=== PATIENT | male | born 1940 | race Caucasian/White ===

== ENCOUNTER 2016-12-26 20:31 | Emergency (ER) | payer OTHER ==
--- NOTE | 2016-12-26 22:54 | DIAGNOSTIC IMAGING REPORT ---
PROCEDURE: CT ABD/PELVIS WITH CONTRAST INDICATION: Epigastric pain. Nausea and vomiting. Elevated white blood count (19,300) and liver function tests TECHNIQUE: 125 ml of Isovue 300 were injected intravenously and axial images were obtained of the entire abdomen and pelvis with sagittal and coronal reformations. COMPARISON: None. FINDINGS: ABDOMEN: There are multiple noncalcified gallstones (largest 2.3 cm). Findings suggest a 8-10 mm distal common duct stone with moderate distention of the common duct (12 mm) and mild intrahepatic ductal dilation. Liver and pancreas appear normal. Spleen and kidneys are normal. Moderate diverticulosis of the descending colon. Bowel pattern is otherwise normal, including appendix. Moderate to marked calcified atheromatous changes of the abdominal aorta with mild aneurysmal line dilation of the lower abdominal aorta (3.2 cm). There is a 20% old compression fracture of the T12 vertebral body. 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 Marked sigmoid diverticulosis, but no evidence of diverticulitis. Marked enlargement prostate (5.5 cm). The rest of pelvic structures are normal. IMPRESSION: 1. Cholelithiasis with multiple noncalcified gallstones (largest 2.3 cm). 2. Findings suggest 10 mm distal common duct stone with moderate dilation of the common bile duct (12 mm), and mild intrahepatic ductal dilation. 3. 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 4. 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 5. Moderate diverticulosis of the descending colon with marked diverticulosis of the sigmoid colon. No evidence of diverticulitis. 6. Marked enlargement prostate (5.5 cm). 7. Findings discussed with Dr. Carson Douglass. All CT scans at this facility use dose modulation, iterative reconstruction, and/or weight-based dosing when appropriate to reduce radiation dose to as low as reasonably achievable.
--- NOTE | 2016-12-26 23:16 | ED NURSING NOTES ---
Clinical Report - Nurses [facility] [address] [place] [address] 12/26/2016 20:32 Patient: DIMITRY KING TRIAGE Triage time 20:33 Dec 26 2016. Acuity: LEVEL 3. Chief Complaint: ABDOMINAL PAIN. 20:38 12/26/16. SEPSIS SCREEN: Sepsis Screen: negative. Negative (no infection suspected/documented). --20:38 Cristal eYh R.N. 20:33 12/26/16. BP: 166/81. HR: 79. RR: 18. O2 saturation: 97%. Temp: 97.7 F. Pain level now: 08/09. --20:38 Cristal Yeh R.N. Weight: 77.1 kg. Height/Length: 69 inches. BMI: 25.1. --20:32 Cristal Yeh R.N. Medications Blood Pressure Pill. --20:34 Cristal Yeh R.N. PILL FOR ANXIETY. --20:34 Cristal Yeh R.N. PriLOSEC Oral. --20:36 Cristal Yeh R.N. Flomax Oral. --20:39 Cristal Yeh R.N. OxyCODONE HCl Oral. --22:10 Cristal Yeh R.N. Medication/allergy information source: the patient. --20:38 Cristal Yeh R.N. Allergies Penicillins. --20:33 Cristal Yeh R.N. History Arrived by private vehicle. Historian: patient. Accompanied by family. Onset. (3 PM). ( STARTED AT 3 PM TODAY, HAS HAD THIS PAIN BEFORE, MD FEELS HE HAS ULCER, STARTED ON PRILOSEC. STATES THIS PAIN IS SIMILAR TO THAT HE HAS HAD IN THE PAST AND IT USUALLY LASTS ABOUT 3 HOURS AND GOES AWAY ON ITS OWN. TODAY IT DIDNT). The patient has had nausea, vomiting and abdominal pain. No diarrhea or constipation. 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 SOCIAL HX: Never smoker. No alcohol use or drug use. No recent travel. No known contact with a sick individual. ABUSE ASSESSMENT: No report of abuse. SELF HARM ASSESSMENT: A self harm assessment was performed. The patient answered "no" to the question "Have you recently felt down, depressed, or hopeless?", "Have you noticed less interest or pleasure in doing things?", "Do you have thoughts of harming or killing yourself?", "Are you here because you tried to hurt yourself?", "Have you ever tried to hurt yourself before today?", "Have you recently had thoughts about harming or killing others?" and "Do you have any dangerous items in your possession?". FALL RISK ASSESSMENT: Fall risk assessment completed. No fall risk identified. NUTRITIONAL RISK ASSESSMENT: The nutritional risk assessment revealed no deficiencies. FUNCTIONAL ASSESSMENT: Functional assessment: no impairments noted. LEARNING NEEDS ASSESSMENT: The learning needs assessment revealed no barriers. SKIN INTEGRITY ASSESSMENT: Skin integrity risk assessment completed. No skin integrity risk identified. --20:38 Cristal Yeh R.N. PROBLEMS: Anxiety Reaction. Hypertension. --20:34 Cristal Yeh R.N. Benign Prostatic Hypertrophy. --20:39 Cristal Yeh R.N. ADDITIONAL SURGERIES: Hernia Repair. --20:35 Cristal Yeh R.N. Interventions ID band on patient. --20:38 Cristal Yeh R.N. PHYSICAL ASSESSMENT 20:39 12/26/16. Ambulatory to room. GENERAL / NEURO / PSYCH: Alert. Oriented X 4. HEENT: Mucous membranes are pink. RESPIRATORY: Breath sounds within normal limits. CVS: Normal sinus rhythm noted. Capillary refill less than 2 seconds. GI / : Abdomen soft. SKIN: Skin is warm and dry. --20:39 Cristal Yeh R.N. 22:11 12/26/16. ( PATIENTS REPORTING THAT HE HAS HAD STOOL THAT IS ALMOST WHITE IN COLOR.). --22:11 Cristal Yeh R.N. NURSING PROGRESS NOTES 20:38 12/26/16. The initial plan of care for this patient includes an assessment with efforts to address the presence of pain; impairment of the gastrointestinal system. This plan of care was discussed with the patient. traffic monitor specialist, pulse oximeter and NIBP monitor placed on patient. Patient gowned. Reassurance given. Patient identifiers checked. Call light placed in reach. Side rails up x 1. Bed placed in lowest position. Brakes of bed on. Patient ready for evaluation. --20:38 Cristal Yeh R.N. 20:49 12/26/2016 Site #1 started via IV in the right forearm with an 20g angiocath, with aseptic technique and good blood return; one attempt. Blood drawn: rainbow set. Labeled in the presence of the patient and sent to the lab. Saline lock flushed with 10 mL saline. --20:49 Cristal Yeh R.N. 20:49 12/26/16. Cardiac rhythm: normal sinus rhythm. --20:49 Cristal Yeh R.N. 20:57. EKG was performed by a nicholas and shown to the ED physician. --21:04 Rina Silvestre ER Tech1 21:57 12/26/2016 Zofran (Ondansetron HCl) IVP 8 mg given over 1 minute(s) via site #1. Allergies verified and confirmed 5 rights. IV patency established. IV site checked: no pain, redness, or swelling. IV flushed thoroughly pre- and post-medication administration. IVP given by RN. --22:00 Cristal Yeh R.N. 21:59 12/26/2016 Dilaudid (HYDROmorphone HCl PF) IVP 0.5 mg given over 1 minute(s) via site #1. Allergies verified, confirmed 5 rights and sedative warning given to the patient and patient's family. IV patency established. IV site checked: no pain, redness, or swelling. IV flushed thoroughly pre- and post-medication administration. IVP given by RN. --22:00 Cristal Yeh R.N. The patient has had no adverse reaction. Overall patient status is improved- he states feels better. GI / : The patient reports abdominal pain is still present but improving and currently moderate in severity. Patient transported to [place] by stretcher. --22:08 Cristal Yeh R.N. 22:07 12/26/16. BP: 180/86. HR: 84. RR: 16. O2 saturation: 95%. Pain level now 6/10. --22:08 Cristal Yeh R.N. 22:35 12/26/2016 GI COCKTAIL WHITE (Simethicone) PO Oral Suspension 30 mL given. Allergies verified and confirmed 5 rights. --22:38 Cristal Yeh R.N. 22:50 12/26/16. BP: 171/83. HR: 81. RR: 16. O2 saturation: 99%. Pain level now 3/10. --22:50 Cristal Yeh R.N. 22:50 12/26/16. The patient is calm and resting quietly. Overall patient status is improved- he states feels better. --22:50 Cristal Yeh R.N. 00:00 12/27/2016 Started 1 gm of Cefotan IVPB in bag #1 50 mL; at 400 mL/hr over 30 minute(s) via site #1 --00:00 Cristal Yeh R.N. DISPOSITION / DISCHARGE 00:12 12/27/16. Report was given to a nurse via a phone call. Report included patient's care, treatment, medications, reviewed medication reconcilliation, and condition (including any recent changes or anticipated changes). All questions were answered. (to Tess on [address] [facility] in [place]). --00:12 Cristal Yeh R.N. 00:28 12/27/2016 Site #[address] upon transfer; patent. Poor blood return present. Flushed with 10 mL saline. --00:28 Cristal Yeh R.N. 00:28 12/27/16. Condition at departure: improved and stable. The goals identified in the patient's plan of care were met. Transferred to [facility] (Room 1055-2). ( Patient refused ambulance transport. Pt will be going by POV. instructed to go directly to [facility]. No stops. Pt to remain NPO. Aware that tests may be done on arrival and verbalized understanding.). FALL RISK ASSESSMENT: Fall risk assessment completed. No fall risk identified. --00:29 Cristal Yeh R.N. 00:28 12/27/16. BP: 152/77. HR: 81. RR: 16. O2 saturation: 99%. Temp: 98.0 F. Pain level now 5/10. --00:29 Cristal Yeh R.N. Locked/Released at 12/27/2016 1:29 by Cristal Yeh R.N.
--- NOTE | 2016-12-26 23:16 | ED ORDER SUMMARY ---
..... Patient: DIMITRY KING OrderSheet [facility] VisitID: [id number] [place] [address] 76y, M Registration Date/Time: 12/26/2016 ORDER SHEET Weight: 77.1 kg Allergies: Penicillins GENERAL ORDERS: CBC w Diff Urgent (20:52 12/26/2016 EInderbitzen R.N. verbal order read back to Guzman TURK) (Ack 20:55 LTapper) (21:03 AMcQuoid ER Tech1) CMP Urgent (20:52 12/26/2016 EInderbitzen R.N. verbal order read back to Guzman TURK) (Ack 20:55 LTapper) (21:03 AMcQuoid ER Tech1) Cardiac Panel Stat (20:52 12/26/2016 EInderbitzen R.N. verbal order read back to Guzman TURK) (Ack 20:55 LTapper) (21:03 AMcQuoid ER Tech1) Amylase Urgent (20:52 12/26/2016 EInderbitzen R.N. verbal order read back to Guzman TURK) (Ack 20:55 LTapper) (21:03 AMcQuoid ER Tech1) Lipase Urgent (20:52 12/26/2016 EInderbitzen R.N. verbal order read back to Guzman TURK) (Ack 20:55 LTapper) (21:03 AMcQuoid ER Tech1) EKG - ER Stat (20:52 12/26/2016 EInderbitzen R.N. verbal order read back to Guzman TURK) (Ack 20:55 LTapper) (21:03 AMcQuoid ER Tech1) CT Abd/Pel w Cont (No) (pending) Urgent (21:50 12/26/2016 Guzman TURK) (Ack 21:59 LTapper) (22:48 MCampbell) UA-Culture if indicated Urgent (22:33 12/26/2016 EInderbitzen R.N. verbal order read back to Guzman TURK) (Ack 22:35 AMcQuoid ER Tech1) (22:50 EInderbitzen R.N.) MEDICATION ORDERS: GI Cocktail WHITE PO 50 mL (after zofran kicks in) (21:49 12/26/2016 Guzman TURK) (22:38 EInderbitzen R.N.) IV FLUIDS: IV Saline Lock (20:52 12/26/2016 EInicoleerdevante R.N. verbal order read back to Guzman TURK) (20:56 EInderbitzen R.N.) Zofran IV 8 mg (NOW) (21:49 12/26/2016 Guzman TURK) (22:00 EInderbitasia R.N.) Dilaudid IV 0.5 mg (NOW) (21:49 12/26/2016 Guzman TURK) (22:00 EInderbitzen R.N.) Zosyn IV 3.375 gm/50mL (NOW) (23:25 12/26/2016 Guzman TURK) (Cancelled: Other23:31 Guzman TURK) Cefotan IV 1 gm (NOW) (23:31 12/26/2016 Guzman TURK) (0:00 EInderbitzen R.N.) ORDER SHEET NOTES: [Electronically signed by Cristal Yeh R.N. (01:12/27/2016)] [Electronically signed by Carson Douglass MD (10:26 12/29/2016)] [Electronically locked/signed by Cristal Yeh R.N. (:12/27/2016)]
--- NOTE | 2016-12-26 23:16 | ED NURSING NOTES ---
Clinical Report - Nurses [facility] [address] [place] [address] 12/26/2016 20:32 Patient: DIMITRY KING TRIAGE Triage time 20:33 Dec 26 2016. Acuity: LEVEL 3. Chief Complaint: ABDOMINAL PAIN. 20:38 12/26/16. SEPSIS SCREEN: Sepsis Screen: negative. Negative (no infection suspected/documented). --20:38 Cristal Yeh R.N. 20:33 12/26/16. BP: 166/81. HR: 79. RR: 18. O2 saturation: 97%. Temp: 97.7 F. Pain level now: 08/09. --20:38 Cristal Yeh R.N. Weight: 77.1 kg. Height/Length: 69 inches. BMI: 25.1. --20:32 Cristal Yeh R.N. Medications Blood Pressure Pill. --20:34 Cristal Yeh R.N. PILL FOR ANXIETY. --20:34 Cristal Yeh R.N. PriLOSEC Oral. --20:36 Cristal Yeh R.N. Flomax Oral. --20:39 Cristal Yeh R.N. OxyCODONE HCl Oral. --22:10 Cristal Yeh R.N. Medication/allergy information source: the patient. --20:38 Cristal Yeh R.N. Allergies Penicillins. --20:33 Cristal Yeh R.N. History Arrived by private vehicle. Historian: patient. Accompanied by family. Onset. (3 PM). ( STARTED AT 3 PM TODAY, HAS HAD THIS PAIN BEFORE, MD FEELS HE HAS ULCER, STARTED ON PRILOSEC. STATES THIS PAIN IS SIMILAR TO THAT HE HAS HAD IN THE PAST AND IT USUALLY LASTS ABOUT 3 HOURS AND GOES AWAY ON ITS OWN. TODAY IT DIDNT). The patient has had nausea, vomiting and abdominal pain. No diarrhea or constipation. 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 SOCIAL HX: Never smoker. No alcohol use or drug use. No recent travel. No known contact with a sick individual. ABUSE ASSESSMENT: No report of abuse. SELF HARM ASSESSMENT: A self harm assessment was performed. The patient answered "no" to the question "Have you recently felt down, depressed, or hopeless?", "Have you noticed less interest or pleasure in doing things?", "Do you have thoughts of harming or killing yourself?", "Are you here because you tried to hurt yourself?", "Have you ever tried to hurt yourself before today?", "Have you recently had thoughts about harming or killing others?" and "Do you have any dangerous items in your possession?". FALL RISK ASSESSMENT: Fall risk assessment completed. No fall risk identified. NUTRITIONAL RISK ASSESSMENT: The nutritional risk assessment revealed no deficiencies. FUNCTIONAL ASSESSMENT: Functional assessment: no impairments noted. LEARNING NEEDS ASSESSMENT: The learning needs assessment revealed no barriers. SKIN INTEGRITY ASSESSMENT: Skin integrity risk assessment completed. No skin integrity risk identified. --20:38 Cristal Yeh R.N. PROBLEMS: Anxiety Reaction. Hypertension. --20:34 Cristal Yeh R.N. Benign Prostatic Hypertrophy. --20:39 Cristal Yeh R.N. ADDITIONAL SURGERIES: Hernia Repair. --20:35 Cristal Yeh R.N. Interventions ID band on patient. --20:38 Cristal Yeh R.N. PHYSICAL ASSESSMENT 20:39 12/26/16. Ambulatory to room. GENERAL / NEURO / PSYCH: Alert. Oriented X 4. HEENT: Mucous membranes are pink. RESPIRATORY: Breath sounds within normal limits. CVS: Normal sinus rhythm noted. Capillary refill less than 2 seconds. GI / : Abdomen soft. SKIN: Skin is warm and dry. --20:39 Cristal Yeh R.N. 22:11 12/26/16. ( PATIENTS REPORTING THAT HE HAS HAD STOOL THAT IS ALMOST WHITE IN COLOR.). --22:11 Cristal Yeh R.N. NURSING PROGRESS NOTES 20:38 12/26/16. The initial plan of care for this patient includes an assessment with efforts to address the presence of pain; impairment of the gastrointestinal system. This plan of care was discussed with the patient. machine sign writer, pulse oximeter and NIBP monitor placed on patient. Patient gowned. Reassurance given. Patient identifiers checked. Call light placed in reach. Side rails up x 1. Bed placed in lowest position. Brakes of bed on. Patient ready for evaluation. --20:38 Cristal Yeh R.N. 20:49 12/26/2016 Site #1 started via IV in the right forearm with an 20g angiocath, with aseptic technique and good blood return; one attempt. Blood drawn: rainbow set. Labeled in the presence of the patient and sent to the lab. Saline lock flushed with 10 mL saline. --20:49 Cristal Yeh R.N. 20:49 12/26/16. Cardiac rhythm: normal sinus rhythm. --20:49 Cristal Yeh R.N. 20:57. EKG was performed by a nicholas and shown to the ED physician. --21:04 Rina Silvestre ER Tech1 21:57 12/26/2016 Zofran (Ondansetron HCl) IVP 8 mg given over 1 minute(s) via site #1. Allergies verified and confirmed 5 rights. IV patency established. IV site checked: no pain, redness, or swelling. IV flushed thoroughly pre- and post-medication administration. IVP given by RN. --22:00 Cristal Yeh R.N. 21:59 12/26/2016 Dilaudid (HYDROmorphone HCl PF) IVP 0.5 mg given over 1 minute(s) via site #1. Allergies verified, confirmed 5 rights and sedative warning given to the patient and patient's family. IV patency established. IV site checked: no pain, redness, or swelling. IV flushed thoroughly pre- and post-medication administration. IVP given by RN. --22:00 Cristal Yeh R.N. The patient has had no adverse reaction. Overall patient status is improved- he states feels better. GI / : The patient reports abdominal pain is still present but improving and currently moderate in severity. Patient transported to [place] by stretcher. --22:08 Cristal Yeh R.N. 22:07 12/26/16. BP: 180/86. HR: 84. RR: 16. O2 saturation: 95%. Pain level now 6/10. --22:08 Cristal Yeh R.N. 22:35 12/26/2016 GI COCKTAIL WHITE (Simethicone) PO Oral Suspension 30 mL given. Allergies verified and confirmed 5 rights. --22:38 Cristal Yeh R.N. 22:50 12/26/16. BP: 171/83. HR: 81. RR: 16. O2 saturation: 99%. Pain level now 3/10. --22:50 Cristal Yeh R.N. 22:50 12/26/16. The patient is calm and resting quietly. Overall patient status is improved- he states feels better. --22:50 Cristal Yeh R.N. 00:00 12/27/2016 Started 1 gm of Cefotan IVPB in bag #1 50 mL; at 400 mL/hr over 30 minute(s) via site #1 --00:00 Cristal Yeh R.N. DISPOSITION / DISCHARGE 00:12 12/27/16. Report was given to a nurse via a phone call. Report included patient's care, treatment, medications, reviewed medication reconcilliation, and condition (including any recent changes or anticipated changes). All questions were answered. (to Tess on [address] at [facility] in [place]). --00:12 Cristal Yeh R.N. 00:28 12/27/2016 Site #[address] upon transfer; patent. Poor blood return present. Flushed with 10 mL saline. --00:28 Cristal Yeh R.N. 00:28 12/27/16. Condition at departure: improved and stable. The goals identified in the patient's plan of care were met. Transferred to [facility] (Room 1055-2). ( Patient refused ambulance transport. Pt will be going by POV. instructed to go directly to [facility]. No stops. Pt to remain NPO. Aware that tests may be done on arrival and verbalized understanding.). FALL RISK ASSESSMENT: Fall risk assessment completed. No fall risk identified. --00:29 Cristal Yeh R.N. 00:28 12/27/16. BP: 152/77. HR: 81. RR: 16. O2 saturation: 99%. Temp: 98.0 F. Pain level now 5/10. --00:29 Cristal Yeh R.N. Locked/Released at 12/27/2016 1:29 by Cristal Yeh R.N.
--- NOTE | 2016-12-26 23:16 | ED CLINICAL REPORT ---
Clinical Report - Physicians/Mid Levels [facility] [address] [place] [address] 12/26/2016 20:32 Patient: DIMITRY KING Time Seen: 21:02 Dec 26 2016. Arrived- By private vehicle. Historian- patient. HISTORY OF PRESENT ILLNESS Chief Complaint: ABDOMINAL PAIN. This started today STARTED AT 3 PM TODAY, HAS HAD THIS PAIN BEFORE, MD FEELS HE HAS ULCER, STARTED ON PRILOSEC. STATES THIS PAIN IS SIMILAR TO THAT HE HAS HAD IN THE PAST AND IT USUALLY LASTS ABOUT 3 HOURS AND GOES AWAY ON ITS OWN. TODAY IT DIDNT). and is still present. It is described as "pain" and it is described as located in the epigastric area. At its maximum, severity described as severe. When seen in the E.D., severity described as severe. Modifying factors. Not worsened by anything. Not relieved by anything. The patient has had nausea and vomiting. (has had 3 episodes in the month of November. Food does not seem to affect the pain either making it worse or better. Does not have a history of severe reflux or peptic ulcer disease in the past. Does not have any blood per rectum. He has had vomiting with these episodes.). No recent travel. Similar symptoms previously: Milder (9 times since July 2016.). Recent medical care: The patient was seen recently in the office (This month). Seen for similar symptoms. Diagnosis: ulcer. REVIEW OF SYSTEMS No constipation, black stools, hematemesis, difficulty with urination or pain with urination. No urinary frequency, fever, sore throat or throat or chest pain. No difficulty breathing, cough, joint pain, skin rash or chills. No back pain, easy bruising or symptoms of hypothyroidism. All systems otherwise negative, except as recorded above. PAST HISTORY Peptic ulcer. Anxiety Reaction. Hypertension. Benign Prostatic Hypertrophy. Hernia Repair. Back injury and chronic L foot pain. Medications: OxyCODONE HCl Oral. Flomax Oral. PriLOSEC Oral. PILL FOR ANXIETY. Blood Pressure Pill. Allergies: Penicillins. SOCIAL HISTORY Never smoker. No alcohol use or drug use. ADDITIONAL NOTES The nursing notes have been reviewed. PHYSICAL EXAM Vital Signs: 12/26/2016 20:33 BP: 166/81. HR: 79. RR: 18. O2 saturation: 97%. Temp: 97.7 F. Pain level now: 08/09. Appearance: Alert. Appears to be in pain. Patient in moderate distress. Eyes: Eyes normal inspection. ENT: Pharynx normal. Neck: Normal inspection. CVS: Normal heart rate and rhythm. Heart sounds normal. Pulses normal. Respiratory: No respiratory distress. Breath sounds normal. Chest nontender. Abdomen: Moderate tenderness in the epigastric area with guarding present. Abnormal bowel sounds: absent. Back: Normal inspection. Skin: Skin warm. Normal skin color. No rash. Extremities: Extremities exhibit normal ROM. Neuro: Oriented X 3. No motor deficit. No sensory deficit. LABS, X-RAYS, AND EKG EKG: No acute ischemia. Normal sinus rhythm. Occasional unifocal wide-complex ectopic beats. Premature ventricular contractions. Normal P waves. Normal QRS complex. Normal axis. No acute ST , T wave changes. There is isolated flattened T wave in lead V1. Prior EKG unavailable. The study has been interpreted contemporaneously. The study has been independently viewed by me. The EKG appears to be a good tracing. Abdominal CT: Muktiple gallstones 22with common duct stone 10 mm due to intrahepatic dilatation, ASVD aorta , iliac vesseles, marked diverticulosis,. Abdominal CT performed with IV contrast. The study was interpreted by the radiologist and discussed with the radiologist. Laboratory Tests: CBC w Diff: (TALITA: 12/26/2016 20:55) ( MsgRcvd 12/26/2016 21:05) Final results Test Result Flag Units (Reference) WHITE BLOOD COUNT 19.3 H K/uL (4.5-11.5) RED BLOOD COUNT 5.10 M/uL (4.50-5.90) HEMOGLOBIN 14.8 gm/dL (13.5-17.5) HEMATOCRIT 44.9 % (41.0-53.0) MEAN CELL VOLUME 88 fL (80-100) MEAN CORPUSCULAR HGB 29 pg (26-34) MEAN CORPUSCULAR HGB CONC 33 g/dL (31-37) RED CELL DISTRIBUTION WIDTH 13.1 % (11.6-14.8) PLATELET COUNT 237 K/uL (150-400) NEUTROPHIL % 89.0 H % (50-75) LYMPH % 5.6 L % (25-40) MONO % 5.3 % (3-14) EOSINOPHIL % 0.1 % (0-4) BASOPHIL % 0 % (0-2) Troponin-I: (TALITA: 12/26/2016 20:55) ( MsgRcvd 12/26/2016 21:20) Final results Test Result Flag Units (Reference) GLUCOSE 178 H mg/dL (70-110) BUN 23 H mg/dL (7-18) CREATININE 1.5 H mg/dL (0.6-1.3) Estimated GFR 48.36 mL/min Estimated GFR- 58.61 mL/min Note: Persistent reduction over 3 months in eGFR<60 mL/min/1.73 m2 defines CKD. Patients with eGFR values>=60 mL/min/1.73 m2 may also have CKD if evidence ofpersistent proteinuria. Additional information may be foundat www.kidney.org. SODIUM 142 mmol/L (136-145) POTASSIUM 3.9 mmol/L (3.5-5.1) CHLORIDE 104 mmol/L (98-107) CARBON DIOXIDE 27 mmol/L (21-32) CALCIUM 9.1 mg/dL (8.5-10.1) TOTAL PROTEIN 7.2 g/dL (6.4-8.2) ALBUMIN 3.6 g/dL (3.3-5.0) BILIRUBIN, TOTAL 4.6 H mg/dL (0.0-1.0) Icteric specimen ALKALINE PHOSPHATASE 586 H U/L (46-116) AST (SGOT) 107 H U/L (15-37) ALT (SGPT) 222 H U/L (12-78) CPK 30 U/L (24-260) MAGNESIUM 2.0 mg/dL (1.8-2.4) LIPASE 292 U/L (73-393) AMYLASE 52 U/L (25-115) TROPONIN I <0.05 L ng/mL (0.00-1.5) TROPONIN REFERENCE RANGE:<0.1 NEGATIVE0.1-1.5 INDETERMINANT>1.5 POSITIVE . PROGRESS AND PROCEDURES Course of Care: heplock Zofran 4 mg IV Dilaudid 1 mg IV Cefotan 1g IV Patient is stable. Symptoms better. Discussed with Surgeon an call [place]. He will admit and consult GI to remove stone by ERCP. Discussed with patient and he refuses transport in ambulance due to cost and will have drive him to [place]. Discussed potential risks but pt will go POV. Patient/family counseled. Disposition: Benefits, risks and alternatives to transfer explained to patient and family. Transferred to [facility]. Summary of care provided to transfer facility. CLINICAL IMPRESSION Acute epigastric abdominal pain. Acute 10mm common duct stone with obstruction. INSTRUCTIONS (Refusing ambulance: Go directly to [place] admitting: Erickson.). (Electronically signed by Carson Douglass MD 12/29/2016 10:26)
--- NOTE | 2016-12-26 23:16 | ED ORDER SUMMARY ---
..... Patient: DIMITRY KING OrderSheet [facility] VisitID: [id number] [place] [address] 76y, M Registration Date/Time: 12/26/2016 ORDER SHEET Weight: 77.1 kg Allergies: Penicillins GENERAL ORDERS: CBC w Diff Urgent (20:52 12/26/2016 EInderbitzen R.N. verbal order read back to Guzman TURK) (Ack 20:55 LTapper) (21:03 AMcQuoid ER Tech1) CMP Urgent (20:52 12/26/2016 EInderbitzen R.N. verbal order read back to Guzman TURK) (Ack 20:55 LTapper) (21:03 AMcQuoid ER Tech1) Cardiac Panel Stat (20:52 12/26/2016 EInderbitzen R.N. verbal order read back to Guzman TURK) (Ack 20:55 LTapper) (21:03 AMcQuoid ER Tech1) Amylase Urgent (20:52 12/26/2016 EInderbitzen R.N. verbal order read back to Guzman TURK) (Ack 20:55 LTapper) (21:03 AMcQuoid ER Tech1) Lipase Urgent (20:52 12/26/2016 EInderbitzen R.N. verbal order read back to Guzman TURK) (Ack 20:55 LTapper) (21:03 AMcQuoid ER Tech1) EKG - ER Stat (20:52 12/26/2016 EInderbitzen R.N. verbal order read back to Guzman TURK) (Ack 20:55 LTapper) (21:03 AMcQuoid ER Tech1) CT Abd/Pel w Cont (No) (pending) Urgent (21:50 12/26/2016 Guzman TURK) (Ack 21:59 LTapper) (22:48 MCampbell) UA-Culture if indicated Urgent (22:33 12/26/2016 EInderbitzen R.N. verbal order read back to Guzman TURK) (Ack 22:35 AMcQuoid ER Tech1) (22:50 EInderbitzen R.N.) MEDICATION ORDERS: GI Cocktail WHITE PO 50 mL (after zofran kicks in) (21:49 12/26/2016 Guzman TURK) (22:38 EInderbitzen R.N.) IV FLUIDS: IV Saline Lock (20:52 12/26/2016 EInicoleerdevante R.N. verbal order read back to Guzman TURK) (20:56 EInderbitzen R.N.) Zofran IV 8 mg (NOW) (21:49 12/26/2016 Guzman TURK) (22:00 EInderbitasia R.N.) Dilaudid IV 0.5 mg (NOW) (21:49 12/26/2016 Guzman TURK) (22:00 EInderbitzen R.N.) Zosyn IV 3.375 gm/50mL (NOW) (23:25 12/26/2016 Guzman TURK) (Cancelled: Other23:31 Guzman TURK) Cefotan IV 1 gm (NOW) (23:31 12/26/2016 Guzman TURK) (0:00 EInderbitzen R.N.) ORDER SHEET NOTES: [Electronically signed by Cristal Yeh R.N. (01:12/27/2016)] [Electronically signed by Carson Douglass MD (10:26 12/29/2016)] [Electronically locked/signed by Cristal Yeh R.N. (:12/27/2016)]
--- NOTE | 2016-12-29 10:26 | ED MAR SUMMARY ---
..... Medication Administration Record [facility] [address] [place] [place] [address] Patient: DIMITRY KING Visit ID: [id number] 76y, M Weight: 77.1 kg Height/Length: 69 in BMI: 25.1 ALLERGIES: Penicillins Given 21:57 12/26/2016 Cristal Yeh R.N. Medication Administered: ZOFRAN [IVP] (ONDANSETRON HCL), Dose: 8 mg IVP over 1 minute(s), Site: #1 right forearm. Medication Ordered: Zofran IV 8 mg (NOW). Given 21:59 12/26/2016 Cristal Yeh R.N. Medication Administered: DILAUDID [IVP] (HYDROMORPHONE HCL PF), Dose: 0.5 mg IVP over 1 minute(s), Site: #1 right forearm. Medication Ordered: Dilaudid IV 0.5 mg (NOW). Given 22:35 12/26/2016 Cristal Yeh R.N. Medication Administered: GI COCKTAIL WHITE [PO] (SIMETHICONE), Dose: 30 mL Oral Suspension PO. Medication Ordered: GI Cocktail WHITE PO 50 mL (after zofran kicks in). Start 00:00 12/27/2016 Cristal Yeh R.N. Medication Administered: CEFOTAN [IVPB], Dose: 1 gm IVPB over 30 minute(s), Rate: 400 mL/hr, Dispensed: 50 mL bag, Site: #1 right forearm. Medication Ordered: Cefotan IV 1 gm (NOW).
--- NOTE | 2016-12-29 10:26 | ED DISCHARGE INSTRUCTIONS ---
Patient: DIMITRY KING General Instructions [facility] VisitID: [id number] [address] [place] [address] 76y, M Registration Date/Time: 12/26/2016 Acute epigastric abdominal pain. Acute 10mm common duct stone with obstruction. INSTRUCTIONS (Refusing ambulance: Go directly to [place] admitting: [facility].). (Electronically signed by Carson Douglass MD 12/29/2016 10:26)
--- NOTE | 2016-12-29 10:26 | ED DISCHARGE INSTRUCTIONS ---
Patient: DIMITRY KING General Instructions [facility] VisitID: [id number] [address] [place] [address] 76y, M Registration Date/Time: 12/26/2016 Acute epigastric abdominal pain. Acute 10mm common duct stone with obstruction. INSTRUCTIONS (Refusing ambulance: Go directly to [place] admitting: [facility].). (Electronically signed by Carson Douglass MD 12/29/2016 10:26)
--- NOTE | 2016-12-29 10:26 | ED MAR SUMMARY ---
..... Medication Administration Record [facility] [address] [place] [address] Patient: DIMITRY KING Visit ID: [id number] 76y, M Weight: 77.1 kg Height/Length: 69 in BMI: 25.1 ALLERGIES: Penicillins Given 21:57 12/26/2016 Cristal Yeh R.N. Medication Administered: ZOFRAN [IVP] (ONDANSETRON HCL), Dose: 8 mg IVP over 1 minute(s), Site: #1 right forearm. Medication Ordered: Zofran IV 8 mg (NOW). Given 21:59 12/26/2016 Cristal Yeh R.N. Medication Administered: DILAUDID [IVP] (HYDROMORPHONE HCL PF), Dose: 0.5 mg IVP over 1 minute(s), Site: #1 right forearm. Medication Ordered: Dilaudid IV 0.5 mg (NOW). Given 22:35 12/26/2016 Cristal Yeh R.N. Medication Administered: GI COCKTAIL WHITE [PO] (SIMETHICONE), Dose: 30 mL Oral Suspension PO. Medication Ordered: GI Cocktail WHITE PO 50 mL (after zofran kicks in). Start 00:00 12/27/2016 Cristal Yeh R.N. Medication Administered: CEFOTAN [IVPB], Dose: 1 gm IVPB over 30 minute(s), Rate: 400 mL/hr, Dispensed: 50 mL bag, Site: #1 right forearm. Medication Ordered: Cefotan IV 1 gm (NOW).
--- NOTE | 2016-12-29 10:26 | ED MED RECONCILIATION SUMMARY ---
Patient: DIMITRY KING Medication Reconciliation Report [facility] VisitID: [id number] [address] [place] [address] 76y, M Registration Date/Time: 12/26/2016 Weight: 77.1 kg Height/Length: 69 in. BMI: 25.1 ALLERGIES: Penicillins The patient's Home Medications are listed below: THE FOLLOWING MEDICATIONS NEED TO BE RECONCILED: Blood Pressure Pill Flomax Oral OxyCODONE HCl Oral PILL FOR ANXIETY PriLOSEC Oral The source(s) of the original Home Medication information: patient The following Medications were given to the patient in the Emergency Department: Zofran [IVP] IVP 8 mg, administered: 12/26/2016 9:57:00 PM Dilaudid [IVP] IVP 0.5 mg, administered: 12/26/2016 9:59:00 PM GI COCKTAIL WHITE [PO] PO 30 mL, administered: 12/26/2016 10:35:00 PM Cefotan [IVPB] IVPB bolus 0, then 1 gm 400 mL/hr, administered: 12/27/2016 12:00:00 AM The following Medications were prescribed to the patient: None.
--- NOTE | 2016-12-29 10:26 | ED MED RECONCILIATION SUMMARY ---
Patient: DIMITRY KING Medication Reconciliation Report [facility] VisitID: [id number] [address] [place] [address] 76y, M Registration Date/Time: 12/26/2016 Weight: 77.1 kg Height/Length: 69 in. BMI: 25.1 ALLERGIES: Penicillins The patient's Home Medications are listed below: THE FOLLOWING MEDICATIONS NEED TO BE RECONCILED: Blood Pressure Pill Flomax Oral OxyCODONE HCl Oral PILL FOR ANXIETY PriLOSEC Oral The source(s) of the original Home Medication information: patient The following Medications were given to the patient in the Emergency Department: Zofran [IVP] IVP 8 mg, administered: 12/26/2016 9:57:00 PM Dilaudid [IVP] IVP 0.5 mg, administered: 12/26/2016 9:59:00 PM GI COCKTAIL WHITE [PO] PO 30 mL, administered: 12/26/2016 10:35:00 PM Cefotan [IVPB] IVPB bolus 0, then 1 gm 400 mL/hr, administered: 12/27/2016 12:00:00 AM The following Medications were prescribed to the patient: None.
== END 2016-12-27 00:31 | disposition short-term general hospital (02) ==
LOC: ED SRH 20:31
DX: K80.51 Calculus of bile duct without cholangitis or cholecystitis with obstruction (principal); I10 Essential (primary) hypertension; Z88.0 Allergy status to penicillin
CPT/HCPCS: 90004; 90100; 90616; 92235; 92530; 92610; 92720; 95059